=== PATIENT | male | born 1985 | race Caucasian/White ===

== ENCOUNTER 2024-06-08 22:25 | Emergency (ER) | payer MEDICAID, OTHER ==
[~2024-06-08] VITALS: Ht 177.8 cm; Wt 56.7 kg
[2024-06-08 22:51] VITALS: BP 146/86; TEMP 98.1; O2SAT 98
== END 2024-06-09 00:07 | disposition left against medical advice (07) ==
LOC: ER 22:26
DX: R07.9 Chest pain, unspecified (principal); Z53.21 Procedure and treatment not carried out due to patient leaving prior to being seen by health care provider